=== PATIENT | female | born 2000 | race Asian ===

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

== ENCOUNTER 2019-05-27 14:52 | Emergency (ER) | payer SELFPAY ==
[2019-05-27 14:59] VITALS: BP 116/86
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
== END 2019-05-27 17:21 | disposition left against medical advice (07) ==
LOC: ED 14:52
DX: T76.21XA Adult sexual abuse, suspected, initial encounter (principal)
CPT/HCPCS: 99282